=== PATIENT | female | born 1980 | race Caucasian/White ===

== ENCOUNTER 2016-05-16 13:56 | Emergency (ER) | payer OTHER ==
[~2016-05-16] VITALS: Ht 170.2 cm; Wt 100.6 kg
[~2016-05-16 13:56] MED LIST: CLINDAMYCIN HC300 MG PO; LIDOCAINE20 MG/1 M5 PO; Motrin PO; NAPROSYN500 MG PO; PRILOSEC20 MG PO; ZOLOFT100 MG PO
[2016-05-16 17:04] VITALS: BP 124/75
== END 2016-05-16 17:05 | disposition home or self-care (01) ==
LOC: RME 13:56 → EME 13:56 → RME 17:05
DX: S06.0X9A Concussion with loss of consciousness of unspecified duration, initial encounter (principal); W01.198A Fall on same level from slipping, tripping and stumbling with subsequent striking against other object, initial encounter
CPT/HCPCS: 70450; 72125; 99281; 99283